=== PATIENT | male | born 1965 | race Caucasian/White ===

== ENCOUNTER 2018-02-21 11:09 | Emergency (ER) | payer OTHER ==
[~2018-02-21] VITALS: Ht 170.2 cm; Wt 71.2 kg
[2018-02-21] MEDS ORDERED: PROGRAF0.5 MG (12:07)
[2018-02-21] MEDS ORDERED: HUMALOG100 UNIT/1 SQ (12:07)
[2018-02-21] MEDS ORDERED: LANTUS SOL100 UNIT/1 SQ (12:07)
[2018-02-21] MEDS ORDERED: IMODIUM A-D2 MG (12:08)
[2018-02-21] MEDS ORDERED: TAMS0.4C (12:08)
[2018-02-21] MEDS ORDERED: NEURONTIN300 MG (12:08)
== END 2018-02-21 20:09 | disposition home or self-care (01) ==
LOC: ER 11:09
DX: M54.5 Low back pain (principal); K29.60 Other gastritis without bleeding; K29.80 Duodenitis without bleeding

== ENCOUNTER 2018-05-12 09:11 | Outpatient (CLI) | payer OTHER ==
[~2018-05-12 09:11] MED LIST: HUMALOG100 UNIT/1 SQ; IMODIUM A-D2 MG; LANTUS SOL100 UNIT/1 SQ; NEURONTIN300 MG; PROGRAF0.5 MG; TAMS0.4C
== END 2018-05-12 09:26 | disposition home or self-care (01) ==
LOC: MRI 09:11
DX: K74.0 Hepatic fibrosis (principal); Z94.4 Liver transplant status
CPT/HCPCS: 74183; A9579

== ENCOUNTER 2018-05-24 13:53 | Outpatient (CLI) | payer OTHER | END 2018-05-24 14:24 | disposition home or self-care (01) | LOC: NUCLEAR 13:53 | DX: M81.0 Age-related osteoporosis without current pathological fracture (principal) ==

== ENCOUNTER 2018-06-02 11:19 | Outpatient (CLI) | payer OTHER | END 2018-06-02 11:27 | disposition home or self-care (01) | LOC: NUCLEAR 11:19 | DX: I73.9 Peripheral vascular disease, unspecified (principal) ==

== ENCOUNTER 2019-05-28 12:48 | Emergency (ER) | payer OTHER ==
[~2019-05-28] VITALS: Ht 170.2 cm; Wt 71.2 kg
[2019-05-28] MEDS ORDERED: CELCEPT (13:53)
== END 2019-05-28 19:15 | disposition home or self-care (01) ==
LOC: ER 12:48
DX: K85.80 Other acute pancreatitis without necrosis or infection (principal); R10.12 Left upper quadrant pain